=== PATIENT | female | born 1950 | race Caucasian/White ===

== ENCOUNTER → 2016-07-09 | Outpatient (CLI) | payer OTHER ==
[~2016-07-09] MED LIST: AMBIEN CR6.25 MG PO; CALCIUM 600600 MG PO; CALTRATE-600 W600 MG PO; CENTRUM SILVER1 TA1 PO; CLONAZEPAM0.5 MG PO; CRESTOR5 MG PO; FERROUS SU325 MG/TAB PO; FOLIC ACID 40400 MCG PO; FOSAMAX70 MG PO; GABAPENTIN100 M1 PO; GABAPENTIN300 MG PO; MUCINEX600 M1 PO; NEXIUM40 MG PO; RESTASIS0.05% OP; RESTORIL30 MG PO; ROZEREM8 MG PO; STOOL SOFTENER100 M2 PO; SYNTHROID0.1 MG PO; VITAMIN C BUFF500 MG PO; ZOLOFT 50MG50 MG PO; [UNRECOGNIZED DRUG - OTHER]
== END ==
LOC: COL.RAD 13:15
DX: S22.080G Wedge compression fracture of T11-T12 vertebra, subsequent encounter for fracture with delayed healing (principal); M41.86 Other forms of scoliosis, lumbar region; Z98.890 Other specified postprocedural states; Y99.9 Unspecified external cause status

== ENCOUNTER → 2016-10-01 | Outpatient (CLI) | payer OTHER | LOC: MHCPAIN 11:57 | DX: G89.29 Other chronic pain (principal); M47.814 Spondylosis without myelopathy or radiculopathy, thoracic region | CPT/HCPCS: G0463 ==

== ENCOUNTER 2016-11-05 16:00 | Outpatient (RCR) | payer OTHER | END 2016-11-28 08:56 | LOC: WSPT 16:00 | DX: M54.6 Pain in thoracic spine (principal) | CPT/HCPCS: G0283-GP ==

== ENCOUNTER → 2017-11-25 | Outpatient (CLI) | payer OTHER | LOC: MC.RAD 15:20 | DX: Z12.31 Encounter for screening mammogram for malignant neoplasm of breast (principal) ==

== ENCOUNTER → 2018-12-08 | Outpatient (CLI) | payer BC | LOC: MC.RAD 11-24 14:45 | DX: Z12.31 Encounter for screening mammogram for malignant neoplasm of breast (principal) ==

== ENCOUNTER → 2020-01-06 | Outpatient (CLI) | payer BC, OTHER ==
[~2020-01-06] VITALS: Ht 157.5 cm; Wt 54.4 kg
[~2020-01-06] MED LIST changes: +ASPIRIN 81M81 MG/TA2 PO; +CALCIUM 600MG+D1 TAB PO; +DETROL 2MG TAB2 MG PO; +EPA FISH OIL1 SGL PO; +ESTRACE0.1 MG/GM VG; +FLONASEALLERGY NS; +HAIRSKINNAILS PO; +KRILL OIL 5001 EACH PO; +MELATONIN5 M1 PO; +MIRTAZAPINE7.5 MG PO; +MUCINEX 60600 MG/TA1 PO; -MUCINEX600 M1 PO; +NEURONTIN300 MG/CAP PO; +PEPCID 20MG TAB20 MG PO; +PHARMASSURE ZIN50 MG PO; +PRENATAL TABLET PO; +PROBIOTIC BLEN1 EACH PO; +RESTASIS MULTI5.5 ML OP; +SINGULAIR 110 MG/TAB PO; +SYNTHROID0.088 MG/T PO; -SYNTHROID0.1 MG PO; +VIT K PO; +VITAMIN B12 781 TAB PO; +VITAMIN D31000 I1 PO; +VITAMINC1000TA PO
[2020-01-06 13:15] VITALS: BP 132/77; PULSE 80
[2020-01-06 14:30] VITALS: BP 133/84; PULSE 73
== END ==
LOC: COL.RAD 12:53
DX: M47.812 Spondylosis without myelopathy or radiculopathy, cervical region (principal)
CPT/HCPCS: J1100

== ENCOUNTER → 2020-02-24 | Outpatient (CLI) | payer BC | LOC: MC.RAD 16:30 | DX: Z12.31 Encounter for screening mammogram for malignant neoplasm of breast (principal) ==

== ENCOUNTER → 2021-02-27 | Outpatient (CLI) | payer BC | LOC: MC.RAD 16:00 | DX: Z12.31 Encounter for screening mammogram for malignant neoplasm of breast (principal) ==

== ENCOUNTER 2021-07-23 20:35 | Emergency (ER) | payer BC ==
[~2021-07-23] VITALS: Ht 157.5 cm; Wt 53.6 kg
[2021-07-23 20:42] VITALS: BP 128/91; PULSE 82; TEMP 98.1
== END 2021-07-23 22:16 | disposition left against medical advice (07) ==
LOC: COL.ER 20:35
DX: J98.9 Respiratory disorder, unspecified (principal)

== ENCOUNTER 2021-09-25 12:42 | Outpatient (RCR) | payer BC ==
[2021-10-08] MEDS ORDERED: EPIPEN 2-PAK1 MG/ML IM (10:46)
[2021-10-08] MEDS ORDERED: MEVACOR10 MG PO (10:51)
[2021-10-08] MEDS ORDERED: calm (10:52)
[2021-10-08] MEDS ORDERED: MOBIC15 MG PO (10:53)
[2021-10-08] MEDS ORDERED: MACU HEALTH (10:54)
[2021-10-08] MEDS ORDERED: B-121000 MCG PO (10:56)
[2021-10-08] MEDS ORDERED: GEMTESA75 MG PO (10:56)
== END 2021-10-07 | disposition home or self-care (01) ==
LOC: WSST
DX: R13.12 Dysphagia, oropharyngeal phase (principal); R05.9 Cough, unspecified; R19.8 Other specified symptoms and signs involving the digestive system and abdomen

== ENCOUNTER → 2021-10-02 | Outpatient (CLI) | payer BC ==
[~2021-10-02] MED LIST changes: +B-121000 MCG PO; +EPIPEN 2-PAK1 MG/ML IM; +GEMTESA75 MG PO; +MACU HEALTH; +MEVACOR10 MG PO; +MOBIC15 MG PO; +calm
== END ==
LOC: COL.RAD 10:00
DX: R05.9 Cough, unspecified (principal); R19.8 Other specified symptoms and signs involving the digestive system and abdomen; R13.12 Dysphagia, oropharyngeal phase

== ENCOUNTER 2021-10-11 09:03 | Outpatient (CLI) | payer BC ==
[~2021-10-11] VITALS: Ht 157.5 cm; Wt 54.0 kg
[2021-10-11 09:34] VITALS: BP 124/81; PULSE 67; TEMP 98.2
[2021-10-11 11:00] VITALS: BP 143/91; PULSE 64
[2021-10-11 11:15] VITALS: BP 148/90; PULSE 63
[2021-10-11 11:45] VITALS: BP 135/91; PULSE 70
== END 2021-10-11 12:10 | disposition home or self-care (01) ==
LOC: COL.RAD 09:03
DX: M51.37 Other intervertebral disc degeneration, lumbosacral region (principal); M47.817 Spondylosis without myelopathy or radiculopathy, lumbosacral region; M48.07 Spinal stenosis, lumbosacral region; M41.85 Other forms of scoliosis, thoracolumbar region
CPT/HCPCS: Q9965

== ENCOUNTER 2022-01-15 17:31 | Emergency (ER) | payer BC ==
[~2022-01-15] VITALS: Ht 157.5 cm; Wt 53.2 kg
[2022-01-15 17:43] VITALS: TEMP 98.7
[2022-01-15 19:37] VITALS: BP 149/91; PULSE 87
== END 2022-01-15 19:38 | disposition home or self-care (01) ==
LOC: COL.ER 17:31
DX: H60.92 Unspecified otitis externa, left ear (principal); Z88.2 Allergy status to sulfonamides

== ENCOUNTER → 2022-03-12 | Outpatient (CLI) | payer BC ==
[~2022-03-12] MED LIST changes: +DESYREL 50MG50 MG PO; +FLAXSEED OIL1000 MG PO; +NEURONTIN100 MG/CAP PO; +NEURONTIN400 MG/CAP PO; +SYNTHROID0.075 MG/T PO
== END ==
LOC: MC.RAD 02-28 16:30
DX: Z12.31 Encounter for screening mammogram for malignant neoplasm of breast (principal)

== ENCOUNTER → 2023-02-24 | Outpatient (CLI) | payer BC ==
[2023-02-24 17:30] LABS: COLLECTION METHOD CLEAN CATCH
[2023-02-24 17:33] LABS: BASO % 0.5 % (0.0-2.0); EOS % 0.5 % (0.0-4.0); GRAN # 4.7 K/mm3 (1.4-6.5); GRAN % 79.6 % (42.2-75.2); HEMOGLOBIN 10.4 g/dl (12.5-16.0); LYMPH # 0.7 K/mm3 (1.2-3.4); LYMPH % 11.4 % (20.0-51.0); MEAN CELL VOLUME 86 fl (80.0-100.0); MEAN CORPUSCULAR HEMOGLOBIN 29 pg (27-31); MEAN CORPUSCULAR HGB CONC 34 g/dl (33.0-37.0); MEAN PLATELET VOLUME 8.7 fl (7.4-10.4); MONO # 0.4 K/mm3 (0.1-0.6); MONO % 7.5 % (1.7-9.3); PLATELET COUNT 385 K/mm3 (130-400); REDCELL DISTRIBUTION WIDTH-CV 13.7 % (11.5-14.5)
[2023-02-24 18:03] LABS: CALCIUM 8.9 mg/dL (8.4-10.2); CREATININE, serum 0.72 mg/dL (0.57-1.11); POTASSIUM 4.3 mmol/L (3.5-4.5)
[2023-02-24 18:10] LABS: URINE APPEARANCE Hazy (CLEAR/HAZY); URINE COLOR Yellow (YELLOW)
[2023-02-24 18:11] LABS: PH 6.5 (5.0-8.5); URINE BLOOD TRACE-INTACT (NEGATIVE); URINE GLUCOSE Negative (NEGATIVE); URINE KETONE TRACE (NEGATIVE); URINE NITRATE Negative (NEGATIVE); URINE PROTEIN(semi-quant) Negative (NEGATIVE)
[2023-02-24 18:14] LABS: URINE BACTERIA None Seen /hpf (NONE SEEN); URINE RBC 0-2 /hpf (0-2)
[2023-02-24 18:30] LABS: THYROID STIMULATING HORMONE 1.455 uIU/mL (0.350-4.940)
== END ==
LOC: COL.RAD 16:36
PROVIDERS: Physician Assistant Medical
DX: R41.0 Disorientation, unspecified (principal)

== ENCOUNTER 2023-11-19 20:14 | Emergency (ER) | payer BC ==
[~2023-11-19] VITALS: Ht 157.5 cm; Wt 52.3 kg
[~2023-11-19 20:14] MED LIST changes: +ARICEPT10 MG PO; +BIAXIN 500MG T500 MG PO; +COLACE 100100 MG/CAP PO; +COZAAR 50MG50 MG/TAB PO; +DEPAKOTE 125MG125 MG PO; +IRON TABLETS325 MG PO; +MELATONIN5 M1 SL; +NORVASC2.5 MG PO; +REMERON 15M15 MG/TA1 PO; +SINEMET 25/101 UDTAB PO; +ZOLOFT 100MG100 MG PO; +ZYRTEC 10MG10 MG PO
[2023-11-19 20:26] VITALS: TEMP 99.1
[2023-11-19] MEDS ORDERED: Ondansetron 4 MG/2 ML VIAL IV ONE (21:15)
[2023-11-19] MEDS ORDERED: NS 1,000 ML IV ONE (21:15)
[2023-11-19] MEDS ORDERED: Morphine 4 MG/ML VIAL IV ONE (21:15)
[2023-11-19 21:19] LABS: HEMATOCRIT 42.8 % (37.0-47.0); HEMOGLOBIN 14.1 g/dl (12.5-16.0); MEAN CELL VOLUME 89 fl (80.0-100.0); MEAN CORPUSCULAR HEMOGLOBIN 29 pg (27-31); MEAN CORPUSCULAR HGB CONC 33 g/dl (33.0-37.0); MEAN PLATELET VOLUME 10.5 fl (7.4-10.4); PLATELET COUNT 176 K/mm3 (130-400); RED BLOOD COUNT 4.81 M/mm3 (4.10-5.30); REDCELL DISTRIBUTION WIDTH-CV 14.5 % (11.5-14.5)
[2023-11-19 21:28] LABS: ALBUMIN 4.3 g/dL (3.4-4.8); BILIRUBIN,TOTAL 0.4 mg/dL (0.2-1.2); C-REACTIVE PROTEIN 0.43 mg/dL (0.00-0.50); CALCIUM 9.7 mg/dL (8.4-10.2); CREATININE, serum 0.77 mg/dL (0.57-1.11); POTASSIUM 3.6 mEq/L (3.5-4.5); TOTAL PROTEIN 7.7 g/dl (6.2-8.1)
[2023-11-19 21:41] LABS: BAND 4 % (0-10); LYMPHOCYTE 4 % (20.0-51.0); NEUTROPHILS 92 % (42.0-75.2); PLATELET ESTIMATE NORMAL (NORMAL)
[2023-11-19 22:33] LABS: COLLECTION METHOD CATHETER
[2023-11-19 22:42] LABS: PH 7.5 (5.0-8.5); URINE APPEARANCE CLEAR (CLEAR/HAZY); URINE BLOOD NEGATIVE (NEGATIVE); URINE COLOR YELLOW (YELLOW); URINE GLUCOSE NEGATIVE (NEGATIVE); URINE KETONE 1+ (NEGATIVE); URINE NITRATE POSITIVE (NEGATIVE); URINE PROTEIN(semi-quant) NEGATIVE (NEGATIVE); URINE UROBILINOGEN 0.2 E.U/dL (0.2-1.0)
[2023-11-19] MEDS ORDERED: Iohexol 300 - 100 ML VIAL IV ONE (23:02)
[2023-11-19] MEDS ORDERED: NS 50 ML IV SCH (23:02)
[2023-11-19] MEDS ORDERED: cefTRIAXone 1 G in Water For Injection,Sterile 10 ML IV ONE (23:45)
[2023-11-20] MEDS ORDERED: CEFTIN 250250 MG/TAB PO (00:22)
[2023-11-20] MEDS ORDERED: Ondansetron 4 MG/2 ML VIAL IV ONE (00:30)
[2023-11-20] MEDS ORDERED: Morphine 4 MG/ML VIAL IV ONE (00:30)
[2023-11-20 00:55] VITALS: BP 150/85; PULSE 100
== END 2023-11-20 00:55 | disposition home or self-care (01) ==
LOC: COL.ER 20:14
PROVIDERS: Nurse Practitioner
DX: N39.0 Urinary tract infection, site not specified (principal); K59.00 Constipation, unspecified; Z88.2 Allergy status to sulfonamides
CPT/HCPCS: J0696; J2270; J2405; J7030; Q9967